=== PATIENT | male | born 1960 | race Caucasian/White ===

== ENCOUNTER 2017-11-08 21:34 | Emergency (ER) | payer OTHER ==
[~2017-11-08] VITALS: Ht 180.3 cm; Wt 108.3 kg
[2017-11-08 23:17] VITALS: BP 180/94
== END 2017-11-08 23:19 | disposition home or self-care (01) ==
LOC: EME 21:34
DX: S59.911A Unspecified injury of right forearm, initial encounter (principal); W21.03XA Struck by baseball, initial encounter
CPT/HCPCS: 73090; 99281; 99283